=== PATIENT | female | born 1960 | race Caucasian/White ===

== ENCOUNTER 2018-04-03 05:43 | Outpatient (CLI) | payer MEDICARE, MEDICAID | END 2018-04-03 05:44 | disposition home or self-care (01) | LOC: CARDIO 05:43 | DX: I25.10 Atherosclerotic heart disease of native coronary artery without angina pectoris (principal) ==

== ENCOUNTER 2018-04-07 06:51 | Day surgery (SDC) | payer MEDICARE, MEDICAID ==
[2018-04-03 14:20] VITALS: BMI 51.0
[2018-04-07 07:31] LABS: BASO # 0.08 K/mm3 (0.0-2.0); BASO % 1.1 % (0.0-3.0); EOS # 0.2 (0.0-0.7); EOS % 3.4 % (1.5-5.0); LYMPH # 1.5 (1.2-3.4); LYMPH % 21.1 % (22.0-35.0); MEAN CELL VOLUME 72.9 fl (80.0-105.0); MEAN CORPUSCULAR HEMOGLOBIN 22.6 pg (25.0-35.0); MEAN CORPUSCULAR HGB CONC 30.9 g/dl (31.0-37.0); MONO # 0.3 (0.1-0.6); MONO % 4.4 % (1.0-6.0); PLATELET COUNT 256 10^3/uL (120.0-450.0); RBC 5.32 10^6/uL (3.5-6.1); RED CELL DISTRIBUTION WIDTH 17.1 % (11.5-14.5)
[2018-04-07 07:44] VITALS: RESP 18
[2018-04-07 07:44] LABS: BLOOD UREA NITROGEN 11 mg/dL (7-21); CALCIUM 9.5 mg/dL (8.4-10.5); GFR NON-AFRICAN AMERICAN > 60
[2018-04-07 07:45] LABS: INR 1.11; PARTIAL THROMBOPLASTIN TIME 33.5 Seconds (26.9-38.3); PROTHROMBIN TIME 12.5 SECONDS (9.4-12.5)
[2018-04-07] MEDS ORDERED: Iodixanol 320 MG/ML 200 ML BOTTLE IV ONE (09:28)
[2018-04-07] MEDS ORDERED: Lidocaine PF 2% (5 ml) Inj (For Cardiac Arrhy) ONE (09:28)
[2018-04-07] MEDS ORDERED: Iohexol 350mgl/ml 50 ML ONE (09:28)
[2018-04-07] MEDS ORDERED: Midazolam 2 MG/2 ML VIAL ONE (09:42)
[2018-04-07] MEDS ORDERED: Sodium Chloride 0.9% 1,000 ML IV SCH (10:15)
[2018-04-07 10:27] VITALS: TEMP 98.1
--- NOTE | 2018-04-07 12:47 | CARDCATH ---
PROCEDURE DATE: 04/07/2018 HISTORY: The patient is a 58-year-old woman who underwent a stress test for preop clearance for knee replacement. Stress test revealed new ischemic areas in the anterior wall. Because of this, cardiac catheterization was recommended. The patient's cardiac risk factors includes hypertension, morbid obesity, as well as intermittent periods of chest pain. PROCEDURE: Left heart catheterization with coronary artery and left ventriculogram. The right femoral artery was cannulated with 6-[place] sheath. There were no complications. I performed moderate sedation which included the presence of an independent trained observer that assisted in monitoring the patient's level of consciousness and physiologic status. After administration of Versed and fentanyl, my intra service time was 15 minutes. The findings on catheterization revealed a left ventricle that contracted normally. Estimated ejection fraction is 60%-65%. Her coronary anatomy revealed a right dominant circulation. The RCA was within normal limits. The left main artery was unremarkable. The LAD and diagonal vessels were free of significant disease. Circumflex artery and obtuse marginal branches were within normal limits. Angio-Seal was used to close the femoral artery site. The patient tolerated the procedure well. In summary, the procedure revealed unremarkable coronary arteries, normal LV function. Given these findings, there is no cardiac contraindications to her planned knee surgery. I have discussed with the patient about the need for weight loss and controlling her blood pressure. Terrance Ordonez MD
[2018-04-07 14:04] VITALS: BP 156/76; PULSE 74; O2SAT 98
--- NOTE | 2018-04-07 16:17 | CARD ---
APPROVED REPORT Date of service: 04/07/2018 EKG Measurement Heart [id number] <Conclusion> Normal sinus rhythm Pulmonary disease pattern Left anterior fascicular block Cannot rule out Inferior infarct (masked by fascicular block?), age undetermined Abnormal ECG
== END 2018-04-07 16:00 | disposition home or self-care (01) ==
LOC: CATH 06:51
PROVIDERS: ATTEND Internal Medicine Cardiovascular Disease
DX: R07.9 Chest pain, unspecified (principal); I10 Essential (primary) hypertension; E66.01 Morbid (severe) obesity due to excess calories; Z68.43 Body mass index [BMI] 50.0-59.9, adult
CPT/HCPCS: 36415; 80048; 85025; 85610; 85730; 86850; 86900; 93005; 93458; 99152; C1760; C1769; C2629; J0360; J1644; J2250; J3010; J7030; Q9966